=== PATIENT | female | born 1950 | race Caucasian/White ===

== ENCOUNTER → 2017-01-13 | Outpatient (CLI) | payer OTHER ==
[~2017-01-13] MED LIST: ALEVE 220MG220 MG PO; ASPIRIN 81M81 MG/TA2 PO; CRANBERRY1 CAP PO; GLUCOPHAGE500 MG/TAB PO; MULTIPLE VITAMI1 CAP PO; NATURAL E400 IU PO; OMEGA 31000 MG PO; PREMARIN VAGINAL CRE; PRINZIDE 25 MG-1 TAB PO; REQUIP 0.5MG0.5 MG PO; VITAMIN D32000 IU PO; ZETIA 10MG TAB10 MG PO; ZOLOFT 100MG100 MG PO
== END ==
LOC: MC.RAD 01-12 13:40
DX: Z12.31 Encounter for screening mammogram for malignant neoplasm of breast (principal)

== ENCOUNTER → 2018-02-13 | Outpatient (CLI) | payer MEDICARE, OTHER | LOC: MC.RAD 10:20 | DX: Z12.31 Encounter for screening mammogram for malignant neoplasm of breast (principal) ==

== ENCOUNTER → 2019-03-25 | Outpatient (CLI) | payer MEDICARE, OTHER | LOC: MC.RAD 14:27 | DX: Z12.31 Encounter for screening mammogram for malignant neoplasm of breast (principal) ==

== ENCOUNTER → 2019-11-06 | Outpatient (CLI) | payer MEDICARE, OTHER | LOC: COL.VAS 12:49 | DX: I34.0 Nonrheumatic mitral (valve) insufficiency (principal) ==

== ENCOUNTER → 2019-11-14 | Outpatient (CLI) | payer MEDICARE, OTHER | LOC: COL.PUL 11:16 | DX: R06.02 Shortness of breath (principal) ==